=== PATIENT | female | born 1990 | race Caucasian/White ===

== ENCOUNTER → 2017-01-21 | Outpatient (CLI) | payer OTHER ==
--- NOTE | 2017-01-21 16:53 | US ---
EXAMINATION TYPE: US OB anatomy transabd DATE OF EXAM: 01/21/2017 4:29 PM COMPARISON: Previous nongravid study dated 12/31/2015 HISTORY: Large for dates TECHNIQUE: Transabdominal (TA) EXAM MEASUREMENTS: GESTATIONAL AGE / DATING Physician Established: (35 weeks/4 days) EDC: 02/21/2017 Dates by LMP: Unknown Dates by First Scan: No previous here Dates by Current Scan for: (35 weeks/2 days) EDC: 02/23/2017 SURVEY IUP: Single PLACENTA: Anterior PREVIA: No previa YASMEEN: 14.5 cm Normal CERVICAL LENGTH (transabdominal: norm > 3.0cm): 3.6 cm BIOMETRY PRESENTATION: Vertex LIE: Longitudinal BPD: 8.6 cm 34 weeks / 5 days HC: 32.0 cm 36 weeks / 1 days AC: 31.7 cm 35 weeks / 5 days FL: 7.0 cm 35 weeks / 5 days ESTIMATED WEIGHT IN GRAMS: 2682 grams ESTIMATED WEIGHT IN LBS/OZS: 5 lbs. 15 oz. WEIGHT PERCENTAGE BASED ON ESTABLISHED DATE: 46 % HC/AC: 0.99 normal FL/AC: 22% normal HEART RATE: 150 bpm RHYTHM: Normal ANATOMY SEEN (within normal limits): Midline Falx Cavus Septi Pellucidi Four Chamber Heart Outflow tracts: LVOT/RVOT Stomach Situs Nose / Lips Diaphragm Kidneys (bilateral) Bladder Cord Insert Three Vessel Cord Longitudinal Spine Transverse Spine Arms (bilateral) Legs (bilateral) ANATOMY NOT SEEN: Due to advanced age, crowding * Lateral Vent (< 1 cm) cm * Cisterna Magna (< 1.1 cm) cm * Nuchal Fold (< 0.6 cm) cm * Cerebellum (varies with age) cm Choroid Plexus (bilateral) Longitudinal Spine Transverse Spine Arms (bilateral) Legs (bilateral) TECHNOLOGIST IMPRESSION: Viable single IUP measuring 35 weeks 2 days with a heart rate of 150bpm and an estimated delivery date of 02/23/2017 IMPRESSION: STODDARD FETUS PRESENT IN A VERTEX LIE WITH A GESTATIONAL AGE OF 35 WEEKS 2 DAYS +/- 3 WEEKS. ESTIMA MAGO DATE OF CONFINEMENT BASED ON THIS EXAMINATION IS 02/23/2017. PLEASE NOTE THE LIMITATIONS IN THE ANATOMIC SCAN.
== END | disposition home or self-care (01) ==
LOC: RADUSWWP 15:38
PROVIDERS: ATTEND Obstetrics & Gynecology
DX: O36.63X0 Maternal care for excessive fetal growth, third trimester, not applicable or unspecified (principal); Z3A.35 35 weeks gestation of pregnancy
CPT/HCPCS: 76811

== ENCOUNTER 2017-02-18 08:30 | Inpatient (IN) | payer OTHER ==
[2017-02-18] MEDS ORDERED: TERBUTALINE 1 MG/ML VIAL SQ PRN (08:56)
[2017-02-18] MEDS ORDERED: LIDOCAINE 1% (PF) 10 MG/ML (30 ML SDV) SQ PRN (08:56)
[2017-02-18] MEDS ORDERED: CARBOPROST TROMETHAMINE 250 MCG/ML 1 ML AMP IM PRN (08:56)
[2017-02-18] MEDS ORDERED: OXYTOCIN 10 UNIT/ML 1 ML VIAL IM PRN (08:56)
[2017-02-18] MEDS ORDERED: METHYLERGONOVINE 0.2 MG/ML 1 ML AMP IM PRN (08:56)
[2017-02-18] MEDS ORDERED: LACTATED RINGERS 1,000 ML IV SCH ×2 (09:00)
[2017-02-18] MEDS ORDERED: fentaNYL (PF) 50 MCG/ML 5 ML AMP ONE (09:19)
[2017-02-18] MEDS ORDERED: SODIUM CHLORIDE 0.9% 100 ML BAG ONE (09:19)
[2017-02-18] MEDS ORDERED: BUPIVACAINE (PF) 0.25% 30 ML VIAL ONE (09:19)
[2017-02-18 09:39] LABS: Anisocytosis Slight; Basophils % (A) 0 %; CH 26.1; CHCM 32.1; Eosinophils # (A) 0.1 k/uL (0-0.7); Eosinophils % (A) 1 %; HCT 35.3 % (34.0-46.0); HDW 3.99; HGB 11.3 gm/dL (11.4-16.0); Hypochromasia Moderate; Luc # (Auto) 0.28; Luc % (Auto) 3; Lymphocytes # (A) 1.8 k/uL (1.0-4.8); Lymphocytes % (A) 16 %; MCH 26.1 pg (25.0-35.0); MCV 81.6 fL (80.0-100.0); Mean Platelet Volume 7.3; Monocytes # (A) 0.5 k/uL (0-1.0); Monocytes % (A) 4 %; Neutrophils # (A) 8.4 k/uL (1.3-7.7); Neutrophils % (A) 76 %; Poikilocytosis Slight; RBC 4.32 m/uL (3.80-5.40); RDW 16.6 % (11.5-15.5)
[2017-02-18] MEDS ORDERED: diphenhydrAMINE 50 MG CAP PO PRN (10:15)
[2017-02-18] MEDS ORDERED: HYDROCORTISONE 2.5% RECTAL CREAM 30 GM TUBE RECTAL PRN (10:15)
[2017-02-18] MEDS ORDERED: BENZOCAINE/MENTHOL SPRAY 1 GM/SPRAY AEROSOL TOPICAL PRN (10:15)
[2017-02-18] MEDS ORDERED: diphenhydrAMINE 25 MG CAP PO PRN (10:15)
[2017-02-18] MEDS ORDERED: LANOLIN CREAM 5 GM TUBE TOPICAL PRN (10:15)
[2017-02-18] MEDS ORDERED: diphenhydrAMINE 50 MG/ML 1 ML VIAL IVP PRN ×2 (10:15)
[2017-02-18] MEDS ORDERED: SIMETHICONE 80 MG CHEWABLE PO PRN (10:15)
[2017-02-18] MEDS ORDERED: WITCH HAZEL 1 EACH MED..PAD TOPICAL PRN (10:15)
[2017-02-18] MEDS ORDERED: ZOLPIDEM 5 MG TAB PO PRN (10:15)
[2017-02-18] MEDS ORDERED: Acetaminophen-Codeine 300-30mg TAB PO PRN (10:15)
[2017-02-18] MEDS ORDERED: ACETAMINOPHEN TAB 325 MG TAB PO PRN (10:15)
--- NOTE | 2017-02-18 10:17 | P.HPOB ---
History of Present Illness H&P Date: 02/18/17 Chief Complaint: Uterine at term active labor Chey is a 26-year-old who arrives in active labor dilated 6 cm. Her course is significant for [facility] care [facility] at [facility] weeks. Prior to that she denies any significant problems. She since seeing me is also hada different problems or competitions. She is feeling well at this time is gabby every 2-3 minutes. heart tones are reactive in the 130s to 140s. Pertinent labs do include O+ blood type Rh antibody negative rubella was immune. Hepatitis B surface antigen and RPR were both negative. On physical exam vital signs are stable and afebrile. Heart regular, lungs clear, extremities without pain. Once she was complete I did have to do artificial rupture membranes as she didn't want an epidural. Clear fluid is noted. Assessment intrauterine at term. Plan expect spontaneous vaginal delivery. Past Medical History Past Medical History: No Reported History History of Any Multi-Drug Resistant Organisms: None Reported Past Surgical History: No Surgical Hx Reported Past Anesthesia/Blood Transfusion Reactions: No Reported Reaction Past Psychological History: No Psychological Hx Reported Smoking Status: Current every day smoker - Past Family History Mother Family Medical History: No Reported History Medications and Allergies Home Medications Medication Instructions Recorded Confirmed Type Pnv with Ca,No.72/Iron/FA 1 each PO DAILY 12/27/16 02/18/17 History [ Plus Tablet] Allergies Allergy/AdvReac Type Severity Reaction Status Date / Time No Known Allergies Allergy Verified 02/18/17 08:55 Exam Osteopathic Statement: *. No significant issues noted on an osteopathic structural exam other than those noted in the History and Physical/Consult. - Vital Signs Vital signs: Intake and Output 02/17/17 02/18/17 02/18/17 22:59 06:59 14:59 Other: Weight 72.121 kg Patient Weight 02/19/17 06:59 Weight 72.121 kg Results Result Diagrams: 02/18/17 08:45 Abnormal Lab Results - Last 24 Hours (Table) 02/18/17 Range/Units 08:45 WBC 11.0 H (3.8-10.6) k/uL Hgb 11.3 L (11.4-16.0) gm/dL RDW 16.6 H (11.5-15.5) % Neutrophils # 8.4 H (1.3-7.7) k/uL
--- NOTE | 2017-02-18 10:18 | P.PROBDLV ---
Vaginal Delivery Note - . Vaginal Delivery Note: Patient progressed complete and pushed with spontaneous vaginal delivery of a viable yamileth over an intact perineum. Baby was delivered from left occiput anterior position. Following delivery of the head anterior posterior shoulders were delivered gentle downward upper traction followed by the remainder the baby. Baby was then suctioned of both mouth and nares and placed on mother's abdomen where the umbilical cord was allowed to pulsate further 30 seconds prior to clamping and cutting. Once accomplished placenta was then delivered intact Pitocin was added to the IV. scores were 9 and 9 at one and 5 minutes Dalton weight was 7 lbs. 6 oz. Both mother and baby are stable following delivery.
[2017-02-18 10:42] VITALS: BMI 29.0
[2017-02-18] MEDS: IBUPROFEN 600 MG TAB PO PRN ×2 (11:47→18:49)
[2017-02-18] MEDS ORDERED: BUPIVACAINE (PF) 0.25% 25 ML, fentaNYL (PF) 200 MCG in SODIUM CHLORIDE 0.9% 71 ML EPIDURAL ONE (12:26)
[2017-02-18] MEDS ORDERED: NICOTINE 14MG/24HR PATCH TRANSDERM SCH (16:00)
[2017-02-18] MEDS ORDERED: MEASLES-MUMPS-RUBELLA VACC/PF 12,500 UNIT/0.5 ML VIAL SQ ONE (16:59)
[2017-02-18] MEDS: Acetaminophen-Codeine 300-30mg TAB PO PRN (19:59)
[2017-02-18] MEDS: SENNOSIDES-DOCUSATE SODIUM 1 EACH TAB PO SCH (21:48)
[2017-02-18] MEDS: OXYTOCIN 30 UNITS/500 ML NS 30 UNIT in SALINE 1 500ML.BAG IV SCH (21:51)
[2017-02-19] MEDS: Acetaminophen-Codeine 300-30mg TAB PO PRN ×2 (03:51→08:43)
[2017-02-19] MEDS: SENNOSIDES-DOCUSATE SODIUM 1 EACH TAB PO SCH (08:43)
--- NOTE | 2017-02-19 09:12 | P.DS ---
Providers Date of admission: 02/18/17 08:34 Expected date of discharge: 02/19/17 Attending physician: Gabriel Fields Primary care physician: Stated None Hospital Course: Chey is doing very well day 1. She is requesting discharge home today. She is ambulating, voiding, and she is tolerating her diet. She voices no complaint. Vital signs are stable and she is afebrile. Heart regular , lungs clear, extremities without pain. Abdomen is soft uterus is firm lochia is reported light. Assessment day 1. Plan discharged home follow up with me in 6 weeks. Prescription for Motrin has been provided as well as prescription for a breast pump. Patient Condition at Discharge: Good Plan - Discharge Summary New Discharge Prescriptions: Ibuprofen [Motrin] 600 mg PO Q6HR PRN #30 tab PRN Reason: Pain Discharge Medication List Pnv with Ca,No.72/Iron/FA [ Plus Tablet] 1 each PO DAILY 12/27/16 [ History] Ibuprofen [Motrin] 600 mg PO Q6HR PRN #30 tab 02/19/17 [Rx] Follow up Appointment(s)/Referral(s): Gabriel Fields DO [Doctor of Osteopathic Medicine] - 6 Weeks Patient Instructions/Handouts: Vaginal Delivery (DC) Activity/Diet/Wound Care/Special Instructions: Vaginal discharge instructions reviewed and all questions are answered Discharge Disposition: HOME SELF-CARE
[2017-02-19 11:58] VITALS: BP 107/66; PULSE 93; RESP 19; TEMP 98.2
== END 2017-02-19 12:15 | disposition home or self-care (01) | DRG 775 ==
LOC: FBPOP 08:30 → 4FBP 08:34
PROVIDERS: ADMIT Obstetrics & Gynecology; ATTEND Obstetrics & Gynecology
PROC: 10E0XZZ Delivery of Products of Conception, External Approach (ICD-10-PCS; principal; 2017-02-18)
PROC: 3E0134Z Introduction of Serum, Toxoid and Vaccine into Subcutaneous Tissue, Percutaneous Approach (ICD-10-PCS; 2017-02-18)
PROC: 00HU33Z Insertion of Infusion Device into Spinal Canal, Percutaneous Approach (ICD-10-PCS; 2017-02-18)
PROC: 3E0R3CZ (ICD-10-PCS; 2017-02-18)
DX: O99.334 Smoking (tobacco) complicating childbirth (principal); F17.200 Nicotine dependence, unspecified, uncomplicated; Z37.0 Single live birth; Z79.899 Other long term (current) drug therapy; Z23 Encounter for immunization; Z3A.39 39 weeks gestation of pregnancy
CPT/HCPCS: 85025; 88307; 90707

== ENCOUNTER → 2017-09-14 | Outpatient (CLI) | payer OTHER ==
--- NOTE | 2017-09-14 13:05 | US ---
EXAMINATION TYPE: US OB anatomy transabd DATE OF EXAM: 09/14/2017 COMPARISON: None HISTORY: 27-year-old female O36.62X0 Large for Dates 2nd Trimester TECHNIQUE: Multiple transabdominal sonographic images of the pelvis are obtained. FINDINGS: EXAM MEASUREMENTS: GESTATIONAL AGE / DATING Physician Established: (19 weeks/4 days) EDC: 02/04/18 Dates by LMP: unknown Dates by First Scan: not available Dates by Current Scan for: (20 weeks/1 days +/- 1W3D) EDC: 01/31/18 SURVEY IUP: Single PLACENTA: Anterior, hypoechoic area within the placenta measuring 2.0 x 0.9 x 1.7 PREVIA: Low Lying with the caudal placental margin located 1.8 cm from the internal cervical os. YASMEEN: 12.4 cm CERVICAL LENGTH (transabdominal: norm > 3.0cm): 3.7 cm BIOMETRY PRESENTATION: Vertex LIE: Longitudinal BPD: 4.7 cm 20 weeks / 1 days HC: 17.7 cm 20 weeks / 1 days AC: 15.2 cm 20 weeks / 3 days FL: 3.2cm 20 weeks / 0 days ESTIMATED WEIGHT IN GRAMS: 340 grams ESTIMATED WEIGHT IN LBS/OZ: 0 lbs.12 oz. WEIGHT PERCENTAGE BASED ON ESTABLISHED DATE: 82 % HC/AC: 1.2 FL/AC: 21.1 HEART RATE: 150 bpm RHYTHM: Normal ANATOMY SEEN (within normal limits): Lateral Vent (< 1 cm) 7.6 mm Cisterna Magna (< 1.1 cm) 0.5 cm Nuchal Fold (< 0.6 cm) 0.2 cm Cerebellum (varies with age) 1.9 cm Choroid Plexus (bilateral) Midline Falx Cavus Septi Pellucidi Four Chamber Heart Stomach Situs Nose / Lips Diaphragm Kidneys (bilateral) Bladder Cord Insert Three Vessel Cord Arms (bilateral) Legs (bilateral) ANATOMY SUBOPTIMALLY VISUALIZED Outflow tracts: LVOT/RVOT Longitudinal Spine - skin line for the cervical spine not delineated. Transverse Spine SHOE PATTERNMAKER NOTES: Very active fetus, making exam technically difficult. IMPRESSION: 1. Single live intrauterine with established gestational age of 19 weeks 4 days. Current ul trasound biometry is larger but concordant (20 weeks 1 day) placing the child at the 82nd percentile for weight. 2. Low-lying anterior placenta measuring 1.8 cm from the internal cervical os. 3. A 2.0 cm hypoechoic area in the placenta could represent a prominent venous raza or chorioangioma. 4. A few structures on the survey were suboptimally visualized (outflow tracts and spine). The remaining structures appear normal. Patient can be brought back for a rescan in 1 to 2 weeks if [place] [facility].
== END | disposition home or self-care (01) ==
LOC: RADUSWWP 10:23
PROVIDERS: ATTEND Obstetrics & Gynecology
DX: O44.42 Low lying placenta NOS or without hemorrhage, second trimester (principal); Z3A.19 19 weeks gestation of pregnancy
CPT/HCPCS: 76811

== ENCOUNTER 2018-01-06 14:42 | Outpatient (CLI) | payer OTHER ==
[2018-01-06 16:25] VITALS: BP 98/60; PULSE 96; RESP 16; TEMP 97.6
--- NOTE | 2018-01-16 10:37 | P.MSEPDOC ---
Presenting Problems - Arrival Data Date of Arrival on Unit: 01/06/18 Time of Arrival on Unit: 14:42 Mode of Transport: Ambulatory - Complaint OB-Reason for Admission/Chief Complaint: Possible Onset of Labor Medical History - Information : 6 Para: 4 Term: 4 : 0 Abortions: Spontaneous or Elective: 0 Number of Living Children: 4 - Gestational Age Gestational Age by ASHLEY (wks/days): 35 Weeks and 6 Days - History Complications: Smoker Review of Systems - Review of Systems Constitutional: No problems Breast: No problems ENT: No problems Cardiovascular: No problems Respiratory: No problems Gastrointestinal: No problems Genitourinary: No problems Musculoskeletal: No problems Neurological: No problems Skin: No problems Vital Signs - Temperature Temperature: 97.6 F - Pulse Right Brachial Pulse Rate: 96 Pulse Assessment Method: Automatic Cuff - Respirations Respiratory Rate: 16 Oxygen Delivery Method: Room Air - Blood Pressure Right Arm Blood Pressure: 98/60 Blood Pressure Mean: 72 Blood Pressure Source: Automatic Cuff Medical Screen Scoring (Pre) - Cervical Exam Dilation: 1-3 cm = 1 Membranes: Intact - Uterine Contractions Frequency: < 36 weeks = 6 Duration: > 40 seconds = 2 Intensity: N/A - Maternal Vital Signs Maternal Temperature: N/A Maternal Blood Pressure: N/A Signs of Preeclampsia: N/A Maternal Respirations: N/A - Pain Assessment Pain Location and Character: Abdomen Pain Scale Used: Numeric (1 - 10) Pain Intensity: 4 Pain Management Goal: 2 Pain Description: *Acute, Cramping Pain Radiation Location: na Pain Frequency: Intermittent Pain Duration: 2 Pain Duration Units: Minutes Pain Behavior: Vocalization Pain Aggravating Factors: None - Maternal Trauma Maternal Trauma: N/A - Assessment Baseline FHR: 125 Heart Rate - NICHD Category: Category I (Normal) = 0 NST: Reactive Position: N/A Station: N/A - Total Score Total Score (Pre): 9 - Level of Risk Level of Risk: Medium (6-9) Physician Notification (Pre) - Physician Notified Physician Notified Date: 01/06/18 Physician Notified Time: 16:00 Physician/Practitioner Notifed:: Dr. Fields Spoke With: Dr. Fields New Order Received: Yes - Notification Comment Comment: orders to have the pt walk the halls and recheck cervix in one hour Medical Screen Scoring (Post) - Cervical Exam Dilation: 1-3 cm = 1 Membranes: Intact - Uterine Contractions Frequency: < 36 weeks = 6 Duration: > 40 seconds = 2 Intensity: N/A - Maternal Vital Signs Maternal Temperature: N/A Maternal Blood Pressure: N/A Signs of Preeclampsia: N/A Maternal Respirations: N/A - Assessment Heart Rate: 125 Heart Rate - NICHD Category: Category I (Normal) = 0 - Total Score Total Score (Post): 9 Physician Notification (Post) - Physician Notified Physician Notified Date: 01/06/18 Physician Notified Time: 17:00 Physician/Practitioner Notified:: Dr. Fields Spoke With: Dr. Fields New Order Received: Yes - Notification Comment Comment: D/C home, not cervical change after two hours Disposition - Disposition OB Disposition: Discharge to home Discharge Date: 01/06/18 Discharge Time: 17:15 I agree with the RN Medical Screening Exam: Yes Risk & Benefit of care provided described in d/c instruction: Yes Diagnosis: FALSE LABOR BEFORE 37 COMPLETED WEEKS OF GEST, THIRD TRI
== END 2018-01-06 17:15 | disposition home or self-care (01) ==
LOC: FBPOP 14:42
PROVIDERS: ATTEND Obstetrics & Gynecology
DX: O47.03 False labor before 37 completed weeks of gestation, third trimester (principal); O99.333 Smoking (tobacco) complicating pregnancy, third trimester; Z3A.35 35 weeks gestation of pregnancy
CPT/HCPCS: 59025; 84112; G0463; 99213

== ENCOUNTER 2018-01-18 22:20 | Outpatient (CLI) | payer OTHER ==
[2018-01-18 23:47] VITALS: BP 114/71; PULSE 109; RESP 16; TEMP 98.6
--- NOTE | 2018-01-22 08:02 | P.MSEPDOC ---
Presenting Problems - Arrival Data Date of Arrival on Unit: 01/18/18 Time of Arrival on Unit: 22:20 Mode of Transport: Ambulatory - Complaint OB-Reason for Admission/Chief Complaint: Possible Onset of Labor Medical History - Information : 6 Para: 4 Term: 4 : 0 Abortions: Spontaneous or Elective: 0 Number of Living Children: 4 - Gestational Age Gestational Age by ASHLEY (wks/days): 37 Weeks and 5 Days - History Complications: GBS+, Smoker Review of Systems - Review of Systems Constitutional: No problems Breast: No problems ENT: No problems Cardiovascular: No problems Respiratory: No problems Gastrointestinal: No problems Genitourinary: No problems Musculoskeletal: No problems Neurological: No problems Skin: No problems Vital Signs - Temperature Temperature: 98.6 F Temperature Source: Temporal Artery Scan - Pulse Right Pulse Rate: 109 Pulse Assessment Method: Pulse Oximetry - Respirations Respiratory Rate: 16 - Blood Pressure Right Arm Blood Pressure: 114/71 Blood Pressure Mean: 85 Blood Pressure Source: Automatic Cuff Medical Screen Scoring (Pre) - Cervical Exam Dilation: 1-3 cm = 1 Membranes: Intact - Uterine Contractions Frequency: > or = 36 weeks =2 Duration: > 40 seconds = 2 Intensity: N/A - Maternal Vital Signs Maternal Temperature: N/A Maternal Blood Pressure: N/A Signs of Preeclampsia: N/A Maternal Respirations: N/A - Assessment Baseline FHR: 135 Heart Rate - NICHD Category: Category I (Normal) = 0 NST: Reactive Position: N/A - Total Score Total Score (Pre): 5 - Level of Risk Level of Risk: Low (0-5) Physician Notification (Pre) - Physician Notified Physician Notified Date: 01/18/18 Physician Notified Time: 23:45 Physician/Practitioner Notifed:: Dr Jang - Notification Comment Comment: reported on pts c/o cntrx, hx of quick deliveries, reactive fhts, cntrx pattern irregular, no cervical change after an hour, pt has scheduled appt tomorrow. orders to d/c home Disposition - Disposition OB Disposition: Discharge to home Discharge Date: 01/18/18 Discharge Time: 23:47 I agree with the RN Medical Screening Exam: Yes Risk & Benefit of care provided described in d/c instruction: Yes Diagnosis: FALSE LABOR AT OR AFTER 37 COMPLETED WEEKS OF GESTATION
== END 2018-01-18 23:48 | disposition home or self-care (01) ==
LOC: FBPOP 22:20
PROVIDERS: ATTEND Obstetrics & Gynecology
DX: O47.1 False labor at or after 37 completed weeks of gestation (principal); Z3A.37 37 weeks gestation of pregnancy
CPT/HCPCS: 59025; G0463; 99213

== ENCOUNTER 2018-01-25 19:20 | Outpatient (CLI) | payer OTHER ==
[2018-01-25 19:49] VITALS: BP 115/81; PULSE 100; RESP 16; TEMP 98.1
--- NOTE | 2018-01-27 17:45 | P.MSEPDOC ---
Presenting Problems - Arrival Data Date of Arrival on Unit: 01/25/18 Time of Arrival on Unit: 19:20 Mode of Transport: Ambulatory - Complaint OB-Reason for Admission/Chief Complaint: Possible Onset of Labor Comment: pt has been gabby irregularly all day Medical History - Information : 7 Para: 4 Term: 4 : 0 Abortions: Spontaneous or Elective: 2 Number of Living Children: 4 - Gestational Age Gestational Age by ASHLEY (wks/days): 38 Weeks and 4 Days - History Complications: No Care Review of Systems - Review of Systems Constitutional: No problems Breast: No problems ENT: No problems Cardiovascular: No problems Respiratory: No problems Gastrointestinal: No problems Genitourinary: No problems Musculoskeletal: No problems Neurological: No problems Skin: No problems Vital Signs - Temperature Temperature: 98.1 F Temperature Source: Oral - Pulse Right Sitting Brachial Pulse Rate: 100 Pulse Assessment Method: Automatic Cuff - Respirations Respiratory Rate: 16 Oxygen Delivery Method: Room Air O2 Sat by Pulse Oximetry: 97 - Blood Pressure Right Arm Sitting Blood Pressure: 115/81 Blood Pressure Mean: 92 Blood Pressure Source: Automatic Cuff Medical Screen Scoring (Pre) - Cervical Exam Dilation: 1-3 cm = 1 Membranes: Intact - Uterine Contractions Frequency: > 5 minutes apart = 1 Duration: > 40 seconds = 2 Intensity: N/A - Maternal Vital Signs Maternal Temperature: N/A Maternal Blood Pressure: N/A Signs of Preeclampsia: N/A Maternal Respirations: N/A - Pain Assessment Pain Location and Character: Abdomen Pain Scale Used: Numeric (1 - 10) Pain Intensity: 7 Pain Management Goal: 4 Pain Description: Cramping Pain Radiation Location: back Pain Frequency: Intermittent Pain Duration: 1 Pain Duration Units: contractions Pain Behavior: Facial Grimacing Pain Aggravating Factors: Breathing, Changing Position Non-Pharmacological Interventions: Relaxation Technique - Maternal Trauma Maternal Trauma: N/A - Assessment Baseline FHR: 135 Heart Rate - NICHD Category: Category I (Normal) = 0 NST: Reactive Position: N/A Station: N/A - Total Score Total Score (Pre): 4 - Level of Risk Level of Risk: Low (0-5) Physician Notification (Pre) - Physician Notified Physician Notified Date: 01/25/18 Physician Notified Time: 20:20 Physician/Practitioner Notifed:: Dr Jerardo Lazar Order Received: No Medical Screen Scoring (Post) - Cervical Exam Dilation: 1-3 cm = 1 Membranes: Intact - Uterine Contractions Frequency: > 5 minutes apart = 1 Duration: > 40 seconds = 2 Intensity: N/A - Maternal Vital Signs Maternal Temperature: N/A Maternal Blood Pressure: N/A Signs of Preeclampsia: N/A Maternal Respirations: N/A - Maternal Trauma Maternal Trauma: N/A - Total Score Total Score (Post): 4 - Post Treatment Level of Risk Post Treatment Level of Risk: Low (0-5) Physician Notification (Post) - Physician Notified Physician Notified Date: 01/25/18 Physician Notified Time: 20:40 Physician/Practitioner Notified:: Dr Jerardo Lazar Order Received: Yes - Notification Comment Comment: pt is to keep apt with Dr Fields tomorrow am at 9am Disposition - Disposition OB Disposition: Discharge to home, Written follow up instructions reviewed Discharge Date: 01/25/18 Discharge Time: 20:45 I agree with the RN Medical Screening Exam: Yes Risk & Benefit of care provided described in d/c instruction: Yes Diagnosis: FALSE LABOR AT OR AFTER 37 COMPLETED WEEKS OF GESTATION
== END 2018-01-25 20:45 | disposition home or self-care (01) ==
LOC: FBPOP 19:20
PROVIDERS: ATTEND Obstetrics & Gynecology
DX: O47.1 False labor at or after 37 completed weeks of gestation (principal); Z3A.38 38 weeks gestation of pregnancy
CPT/HCPCS: 59025; G0463; 99213

== ENCOUNTER 2018-01-26 09:36 | Inpatient (IN) | payer OTHER ==
[2018-01-26] MEDS ORDERED: AMPICILLIN 2,000 MG in SODIUM CHLORIDE 0.9% 100 ML IVPB STA (09:44)
[2018-01-26] MEDS ORDERED: LIDOCAINE 1% (PF) 10 MG/ML (30 ML SDV) SQ PRN (09:44)
[2018-01-26] MEDS ORDERED: CARBOPROST TROMETHAMINE 250 MCG/ML 1 ML AMP IM PRN (09:44)
[2018-01-26] MEDS ORDERED: METHYLERGONOVINE 0.2 MG/ML 1 ML AMP IM PRN (09:44)
[2018-01-26] MEDS ORDERED: TERBUTALINE 1 MG/ML VIAL SQ PRN (09:44)
[2018-01-26] MEDS ORDERED: OXYTOCIN 10 UNIT/ML 1 ML VIAL IM PRN (09:44)
[2018-01-26] MEDS ORDERED: OXYTOCIN 20 UNITS/1000 ML NS 1,000 ML IV SCH (09:45)
[2018-01-26 09:51] VITALS: BMI 30.3
[2018-01-26] MEDS: LACTATED RINGERS 1,000 ML IV SCH ×3 (09:55→21:40)
[2018-01-26] MEDS ORDERED: BUPIVACAINE (PF) 0.25% 30 ML VIAL ONE (10:11)
[2018-01-26] MEDS ORDERED: SODIUM CHLORIDE 0.9% 100 ML BAG ONE (10:11)
[2018-01-26] MEDS ORDERED: fentaNYL (PF) 50 MCG/ML 5 ML AMP ONE (10:11)
[2018-01-26] MEDS ORDERED: ePHEDrine SULFATE/0.9% NACL/PF 50 MG/5 ML SYRINGE IV ONE (10:11)
[2018-01-26 10:22] LABS: Anisocytosis Slight; Basophils % (A) 0 %; Eosinophils # (A) 0.1 k/uL (0-0.7); Eosinophils % (A) 1 %; HGB 10.8 gm/dL (11.4-16.0); Hypochromasia Moderate; Lymphocytes # (A) 1.6 k/uL (1.0-4.8); Lymphocytes % (A) 15 %; MCH 25.2 pg (25.0-35.0); MCHC 31.8 g/dL (31.0-37.0); MCV 79.2 fL (80.0-100.0); Mean Platelet Volume 7.7; Microcytosis Slight; Monocytes # (A) 0.6 k/uL (0-1.0); Monocytes % (A) 5 %; Neutrophils # (A) 8.6 k/uL (1.3-7.7); Neutrophils % (A) 78 %; Platelet Count 274 k/uL (150-450); Poikilocytosis Moderate; RBC 4.29 m/uL (3.80-5.40); RDW 17.1 % (11.5-15.5); WBC 11.1 k/uL (3.8-10.6)
[2018-01-26] MEDS ORDERED: BUPIVACAINE (PF) 0.25% 25 ML, fentaNYL (PF) 200 MCG in SODIUM CHLORIDE 0.9% 71 ML EPIDURAL ONE (10:29)
[2018-01-26] MEDS: AMPICILLIN 1,000 MG in SODIUM CHLORIDE 0.9% 50 ML IVPB SCH ×2 (13:50→21:42)
[2018-01-26] MEDS ORDERED: Acetaminophen-Codeine 300-30mg TAB PO PRN ×2 (16:22)
[2018-01-26] MEDS ORDERED: diphenhydrAMINE 50 MG CAP PO PRN (16:22)
[2018-01-26] MEDS ORDERED: ZOLPIDEM 5 MG TAB PO PRN (16:22)
[2018-01-26] MEDS ORDERED: diphenhydrAMINE 25 MG CAP PO PRN (16:22)
[2018-01-26] MEDS ORDERED: ACETAMINOPHEN TAB 325 MG TAB PO PRN (16:22)
[2018-01-26] MEDS ORDERED: HYDROCORTISONE 2.5% RECTAL CREAM 30 GM TUBE RECTAL PRN (16:22)
[2018-01-26] MEDS ORDERED: SIMETHICONE 80 MG CHEWABLE PO PRN (16:22)
[2018-01-26] MEDS ORDERED: WITCH HAZEL 1 EACH MED..PAD TOPICAL PRN (16:22)
[2018-01-26] MEDS ORDERED: LANOLIN CREAM 5 GM TUBE TOPICAL PRN (16:22)
[2018-01-26] MEDS ORDERED: diphenhydrAMINE 50 MG/ML 1 ML VIAL IVP PRN ×2 (16:22)
[2018-01-26] MEDS ORDERED: BENZOCAINE/MENTHOL SPRAY 1 GM/SPRAY AEROSOL TOPICAL PRN (16:22)
[2018-01-26] MEDS: IBUPROFEN 600 MG TAB PO PRN (17:20)
--- NOTE | 2018-01-26 18:21 | P.HPOB ---
History of Present Illness H&P Date: 01/26/18 Chief Complaint: IUP term: active labor Chey is a 27-year-old at 38 weeks gestation who arrives in active labor. She has a history of very rapid labors and on exam in the office today she was noted be 6 cm she was initially sent to labor and delivery for admission. Due to groupie strep positive status, at of ionic's were initiated. Artificial rupture membranes was not performed until the second dose antibodies was about to be given. Her course otherwise has been significant for pica which began at approximately 28 weeks. At that time she was supposed to initiate iron sulfate therapy and will be pica did improve it did not resolve. Pertinent labs do include O+ blood type, Rh antibody was negative, rubella immune, hepatitis B surface antigen and RPR were both negative. On physical exam vital signs are stable and afebrile. Heart regular , lungs clear, extremities without pain. Osteopathic exams unremarkable. heart tones 140s and reactive. Assessment intrauterine at term with active labor. Plan expect spontaneous vaginal delivery and she anticipates use of epidural for analgesia. Past Medical History Past Medical History: No Reported History History of Any Multi-Drug Resistant Organisms: None Reported Past Surgical History: No Surgical Hx Reported Additional Past Surgical History / Comment(s): 2007 Past Anesthesia/Blood Transfusion Reactions: No Reported Reaction Past Psychological History: No Psychological Hx Reported Smoking Status: Current every day smoker Past Alcohol Use History: None Reported Past Drug Use History: None Reported - Past Family History Mother Family Medical History: No Reported History Medications and Allergies Home Medications Medication Instructions Recorded Confirmed Type No Known Home Medications [No 01/18/18 01/25/18 History Known Home Medications] Allergies Allergy/AdvReac Type Severity Reaction Status Date / Time No Known Allergies Allergy Verified 01/18/18 22:25 Exam Osteopathic Statement: *. No significant issues noted on an osteopathic structural exam other than those noted in the History and Physical/Consult. - Vital Signs Vital signs: Vital Signs Temp Pulse Resp BP Pulse Ox 01/26/18 17:00 97 F L 88 16 120/79 01/26/18 16:30 91 16 115/75 01/26/18 16:00 88 16 116/66 01/26/18 15:45 101 H 16 117/71 01/26/18 15:30 90 16 116/57 01/26/18 15:15 100 16 147/82 01/26/18 15:00 115 H 16 113/76 01/26/18 09:43 98.2 F 113 H 18 128/94 99 Intake and Output 01/26/18 01/26/18 01/26/18 06:59 14:59 22:59 Other: # Voids 1 Weight 75.296 kg Patient Weight 01/27/18 06:59 Weight 75.296 kg Results Result Diagrams: 01/26/18 09:52 Abnormal Lab Results - Last 24 Hours (Table) 01/26/18 Range/Units 09:52 WBC 11.1 H (3.8-10.6) k/uL Hgb 10.8 L (11.4-16.0) gm/dL MCV 79.2 L (80.0-100.0) fL RDW 17.1 H (11.5-15.5) % Neutrophils # 8.6 H (1.3-7.7) k/uL
--- NOTE | 2018-01-26 18:22 | P.PROBDLV ---
Vaginal Delivery Note - . Vaginal Delivery Note: Chey progressed to complete and pushing with spontaneous vaginal delivery of a viable male over an intact perineum. Following delivery of the head anterior and posterior shoulders were delivered with gentle downward and upward traction followed by the remainder the baby. Mouth and nares were then bulb suctioned and baby was placed on mother's abdomen where the umbilical cord was allowed to pulsate for 30 seconds prior to clamping and cutting. Once this was accomplished nursery personnel was present to assume care. Placenta was then delivered intact and Pitocin was added to the IV. scores were 9 and 9 at one and 5 minutes respectively with a weight of 7 lbs. 13 oz. Both mother and baby baby are stable following delivery.
[2018-01-26] MEDS: SENNOSIDES-DOCUSATE SODIUM 1 EACH TAB PO SCH (20:20)
[2018-01-27] MEDS: IBUPROFEN 600 MG TAB PO PRN ×2 (06:21→12:45)
[2018-01-27 07:55] LABS: Anisocytosis Slight; Basophils % (A) 0 %; Eosinophils # (A) 0.1 k/uL (0-0.7); Eosinophils % (A) 1 %; HCT 31.2 % (34.0-46.0); HGB 9.7 gm/dL (11.4-16.0); Hypochromasia Moderate; Lymphocytes # (A) 1.8 k/uL (1.0-4.8); Lymphocytes % (A) 20 %; MCH 25.2 pg (25.0-35.0); MCHC 31.1 g/dL (31.0-37.0); Mean Platelet Volume 8.2; Monocytes # (A) 0.6 k/uL (0-1.0); Monocytes % (A) 6 %; Neutrophils # (A) 6.6 k/uL (1.3-7.7); Neutrophils % (A) 72 %; Platelet Count 246 k/uL (150-450); Poikilocytosis Slight; RBC 3.85 m/uL (3.80-5.40); RDW 16.9 % (11.5-15.5); WBC 9.2 k/uL (3.8-10.6)
[2018-01-27] MEDS: SENNOSIDES-DOCUSATE SODIUM 1 EACH TAB PO SCH (08:11)
[2018-01-27 08:59] VITALS: BP 119/78; PULSE 78; RESP 16; TEMP 97.6
--- NOTE | 2018-01-27 12:28 | P.DS ---
Providers Date of admission: 01/26/18 09:36 Expected date of discharge: 01/27/18 Attending physician: Gabriel Fields Primary care physician: Stated None Hospital Course: Chey is doing very well day 1. She is ambulating, voiding, and she is tolerating her diet. She voices no complaint. Vital signs are stable and afebrile. Heart regular, lungs clear, extremities without pain. Abdomen soft positive bowel sounds are noted. Uterus is firm and lochia is reported be light. Assessment day 1. Plan discharged home follow me in 6 weeks. Discharge instructions were thoroughly reviewed and a prescription for Motrin has been provided. All other questions are answered for her prior to her discharge. Patient Condition at Discharge: Good Plan - Discharge Summary Discharge Rx Participant: Yes New Discharge Prescriptions: New Ibuprofen [Motrin] 600 mg PO Q6HR PRN #30 tab PRN Reason: Pain Discharge Medication List Ibuprofen [Motrin] 600 mg PO Q6HR PRN #30 tab 01/27/18 [Rx] Follow up Appointment(s)/Referral(s): Gabriel Fields DO [Doctor of Osteopathic Medicine] - 6 Weeks Activity/Diet/Wound Care/Special Instructions: No heavy lifting, limit stairs and driving, and pelvic rest. If any high temperatures, heavy bleeding, or severe pain call my office Discharge Disposition: HOME SELF-CARE
== END 2018-01-27 16:40 | disposition home or self-care (01) | DRG 775 ==
LOC: 4FBP 09:36
PROVIDERS: ADMIT Obstetrics & Gynecology; ATTEND Obstetrics & Gynecology
PROC: 10E0XZZ Delivery of Products of Conception, External Approach (ICD-10-PCS; principal; 2018-01-26)
PROC: 3E0R3NZ Introduction of Analgesics, Hypnotics, Sedatives into Spinal Canal, Percutaneous Approach (ICD-10-PCS; 2018-01-26)
PROC: 00HU33Z Insertion of Infusion Device into Spinal Canal, Percutaneous Approach (ICD-10-PCS; 2018-01-26)
DX: O99.824 Streptococcus B carrier state complicating childbirth (principal); F17.210 Nicotine dependence, cigarettes, uncomplicated; O99.334 Smoking (tobacco) complicating childbirth; Z37.0 Single live birth; Z3A.38 38 weeks gestation of pregnancy; Z87.19 Personal history of other diseases of the digestive system
CPT/HCPCS: 85025; 88307

== ENCOUNTER → 2018-04-09 | Outpatient (CLI) | payer OTHER ==
[2018-04-09 10:43] LABS: Anisocytosis Slight; Basophils % (A) 0 %; Eosinophils # (A) 0.2 k/uL (0-0.7); Eosinophils % (A) 3 %; HCT 39.6 % (34.0-46.0); HGB 12.7 gm/dL (11.4-16.0); Lymphocytes % (A) 30 %; MCV 84.3 fL (80.0-100.0); Mean Platelet Volume 8.8; Microcytosis Slight; Monocytes # (A) 0.4 k/uL (0-1.0); Monocytes % (A) 6 %; Neutrophils # (A) 3.8 k/uL (1.3-7.7); Neutrophils % (A) 60 %; Platelet Count 261 k/uL (150-450); RDW 18.3 % (11.5-15.5); WBC 6.4 k/uL (3.8-10.6)
== END | disposition home or self-care (01) ==
LOC: LABPAT 10:21
PROVIDERS: ATTEND Obstetrics & Gynecology
DX: Z01.812 Encounter for preprocedural laboratory examination (principal)
CPT/HCPCS: 36415; 85025

== ENCOUNTER 2018-04-12 11:25 | Day surgery (SDC) | payer OTHER ==
[2018-04-09 09:12] VITALS: BMI 27.2
--- NOTE | 2018-04-09 16:51 | P.HPOB ---
History of Present Illness H&P Date: 04/09/18 Chief Complaint: Family planning Chey is a 27-year-old female who is completed her family planning desires permanent sterilization. She is a 7 para 6. Risks/benefits/ alternatives to a laparoscopic tubal ligation were discussed with the patient in detail and all questions were answered for her prior to proceeding to the operative room. Past Medical History Past Medical History: No Reported History History of Any Multi-Drug Resistant Organisms: None Reported Past Surgical History: Hernia Repair, Tonsillectomy Additional Past Surgical History / Comment(s): UMBILICAL HERNIA REPAIR, D&C Past Anesthesia/Blood Transfusion Reactions: No Reported Reaction Smoking Status: Current every day smoker - Past Family History Mother Family Medical History: No Reported History Medications and Allergies Home Medications Medication Instructions Recorded Confirmed Type Ibuprofen [Motrin] 600 mg PO Q6HR PRN #30 tab 01/27/18 04/09/18 Rx Allergies Allergy/AdvReac Type Severity Reaction Status Date / Time No Known Allergies Allergy Verified 04/09/18 08:23 Exam Osteopathic Statement: *. No significant issues noted on an osteopathic structural exam other than those noted in the History and Physical/Consult. - Vital Signs Vital signs: Intake and Output 04/09/18 04/09/18 04/09/18 06:59 14:59 22:59 Other: Weight 67.585 kg - OBG Physical Exam Breast: both: normal (no masses) Abdomen: bowel sounds normal, no diffuse tenderness, no bruit present, no guarding noted, no hepatomegaly, no splenomegaly, no mass Vulva: both: normal Vagina: normal moisture, no discharge Cervix: no lesion, no discharge Uterus: normal size, normal contour Adnexa: both: normal Anus/Rectum: normal perianal skin, no rectal mass, no hemorrhoids, heme negative
[~2018-04-12 11:25] MED LIST: DEXAMETHASONE SOD PHOSPHATE 10 MG/ML 1 ML VIAL IV ONE; LACTATED RINGERS 1,000 ML IV SCH; MIDAZOLAM 2 MG/2 ML VIAL IV PRN; ONDANSETRON 4 MG/2 ML VIAL IVP ONE; Pre Op ABX Message 1 EACH MISC MISCELLANE ONE; SCOPOLAMINE 1.5MG/72HR PATCH TRANSDERM ONE; fentaNYL (PF) 50 MCG/ML 2 ML AMP IV PRN
[2018-04-12] MEDS ORDERED: SUCCINYLCHOLINE CHLORIDE 100 MG/5 ML SYR IV ONE (12:28)
[2018-04-12] MEDS ORDERED: LIDOCAINE 1% INJ 10MG/ML (20 ML MDV) ONE (12:28)
[2018-04-12] MEDS ORDERED: ROCURONIUM BROMIDE 10 MG/ML 10 ML VIAL IV ONE (12:28)
[2018-04-12] MEDS ORDERED: GLYCOPYRROLATE 0.2 MG/ML 2 ML VIAL ONE (12:28)
[2018-04-12] MEDS ORDERED: MIDAZOLAM 2 MG/2 ML VIAL ONE (12:28)
[2018-04-12] MEDS ORDERED: NEOSTIGMINE 1 MG/ML 10 ML VIAL ONE (12:28)
[2018-04-12] MEDS ORDERED: PROPOFOL 10 MG/ML 20 ML VIAL IV ONE (12:28)
[2018-04-12] MEDS ORDERED: fentaNYL (PF) 50 MCG/ML 2 ML AMP ONE (12:28)
[2018-04-12] MEDS ORDERED: LIDOCAINE 1% 20 ML VIAL (10MG/ML) FOR IV START INTRADERMA ONE (12:30)
[2018-04-12] MEDS ORDERED: BUPIVACAINE (PF) 0.25% 30 ML VIAL SQ ONE (12:51)
--- NOTE | 2018-04-12 13:05 | P.OP ---
Date of Procedure: 04/12/18 Preoperative Diagnosis: Family planning Postoperative Diagnosis: Same Procedure(s) Performed: Laparoscopic tubal occlusion with Filshie clips Anesthesia: MAHNAZ Surgeon: Gabriel Fields Estimated Blood Loss (ml): 5 IV fluids (ml): 400 Urine output (ml): 30 Pathology: none sent Condition: stable Disposition: same day Operative Findings: Normal female anatomy Description of Procedure: Patient was taken to the operating suite where a general anesthetic was found be adequate. She was prepped and draped in the normal sterile fashion and placed in dorsal lithotomy position. Initially a speculum was inserted into the vagina and the anterior lip cervix identified and grasped with Allis clamp. Uterus was then sounded to 11 cm and a manipulator was inserted without difficulty. Red rubber catheter was then used to drain the bladder of urine and this underwent an Allis clamp were removed. Gloves were then changed and attention was turned to the abdominal portion of procedure where 3 mL of quarter percent Marcaine was injected periumbilically. Through this injected anesthetic a 5 mm skin incision was made and through this incision under direct visualization with an optical trocar and sleeve the camera was inserted. Once peritoneal placement was assured gas was allowed to fully insufflate the abdomen and patient was then placed in steep Trendelenburg position. A second 8 mm skin incision was then made 3 cm above the pubic symphysis in the midline and an 8 mm trocar and sleeve were inserted. Observations the pelvis were noted uterus was then elevated first the right fallopian tube the left fallopian tube had a Filshie clip applied 2-3 cm from uterine cornu. No bleeding is noted from the mesosalpinx therefore instruments are removed and gas was allowed to expel from the abdomen. 5 deep breaths were provided during this process. Once completed ports were removed and 4-0 Vicryl was used to close incision subcuticular. The remaining 7 mL of quarter percent Marcaine was then injected around these incisions. Incidents removed from the vagina. Bunge, lap, needle counts were all correct 2. Patient was then taken to the recovery room in stable and satisfactory condition. Plan - Discharge Summary New Discharge Prescriptions: New Ibuprofen [Motrin] 600 mg PO Q6HR PRN #30 tab PRN Reason: Pain No Action Ibuprofen [Motrin] 600 mg PO Q6HR PRN #30 tab PRN Reason: Pain Discharge Medication List Ibuprofen [Motrin] 600 mg PO Q6HR PRN #30 tab 01/27/18 [Rx] Ibuprofen [Motrin] 600 mg PO Q6HR PRN #30 tab 04/12/18 [Rx] Follow up Appointment(s)/Referral(s): Gabriel Fields DO [Doctor of Osteopathic Medicine] - 2 Weeks Activity/Diet/Wound Care/Special Instructions: No heavy lifting, limit stairs and driving today, pelvic rest. If any high temperatures, heavy bleeding, or severe pain call my office
[2018-04-12] MEDS ORDERED: MORPHINE SULFATE 4MG/4ML SYRG IVP ONE (13:15)
[2018-04-12 13:26] VITALS: TEMP 97
[2018-04-12] MEDS ORDERED: KETOROLAC 30 MG/ML 1 ML VIAL IVP ONE (13:27)
[2018-04-12 14:03] VITALS: RESP 18
[2018-04-12] MEDS ORDERED: IBUPROFEN 200 MG TAB PO ONE (14:56)
[2018-04-12 15:25] VITALS: BP 123/83; PULSE 61
== END 2018-04-12 15:38 | disposition home or self-care (01) ==
LOC: OR 11:25
PROVIDERS: ATTEND Obstetrics & Gynecology
DX: Z30.2 Encounter for sterilization (principal); F17.200 Nicotine dependence, unspecified, uncomplicated
CPT/HCPCS: 81025; 58671; J2250; J1100; J2710; J2405; J2001; J3010; J1885; J0330; J2704; J2270

== ENCOUNTER 2020-05-03 09:05 | Inpatient (IN) | payer MEDICAID, OTHER ==
[2020-05-03] MEDS ORDERED: SODIUM CHLORIDE 0.9% 500 ML 500 ML IV STA (09:33)
[2020-05-03] MEDS ORDERED: ACTIVATED CHARCOAL 50 GM/240 ML BOTTLE PO STA (09:34)
[2020-05-03 09:41] LABS: Basophils # (A) 0.1 k/uL (0-0.2); Basophils % (A) 1 %; Eosinophils # (A) 0.1 k/uL (0-0.7); Eosinophils % (A) 2 %; HCT 40.1 % (34.0-46.0); HGB 12.9 gm/dL (11.4-16.0); Lymphocytes # (A) 2.7 k/uL (1.0-4.8); Lymphocytes % (A) 33 %; MCHC 32.1 g/dL (31.0-37.0); MCV 90.3 fL (80.0-100.0); Mean Platelet Volume 7.2; Monocytes # (A) 0.4 k/uL (0-1.0); Monocytes % (A) 4 %; Neutrophils # (A) 4.7 k/uL (1.3-7.7); Neutrophils % (A) 58 %; Platelet Count 253 k/uL (150-450); RBC 4.44 m/uL (3.80-5.40); RDW 14.3 % (11.5-15.5); WBC 8.1 k/uL (3.8-10.6)
--- NOTE | 2020-05-03 09:41 | ED ---
General Adult HPI - General Chief complaint: Overdose Stated complaint: Overdose Source: patient, family, RN notes reviewed, old records reviewed Mode of arrival: wheelchair Limitations: no limitations - History of Present Illness Initial comments: This is a 29-year-old female who states at approximately 7:30 this morning she was upset that she couldn't see her kids anymore so she took 20 Klonopin and one half of the Suboxone. Patient states she purchased them on the street. Patient is very tired. Patient denies any other drug use. Patient states she has attempted suicide in the past. Patient states she was trying to harm her self. Patient denies any recent fever chills or cough per patient denies any chest pain difficulty breathing shortness breath. Patient denies abdominal pain patient denies nausea vomiting diarrhea. - Related Data Home Medications Medication Instructions Recorded Confirmed No Known Home Medications 05/03/20 05/03/20 Allergies Allergy/AdvReac Type Severity Reaction Status Date / Time No Known Allergies Allergy Verified 05/03/20 11:11 Review of Systems ROS Statement: Those systems with pertinent positive or pertinent negative responses have been documented in the HPI. ROS Other: All systems not noted in ROS Statement are negative. Past Medical History Past Medical History: No Reported History History of Any Multi-Drug Resistant Organisms: None Reported Past Surgical History: Hernia Repair, Tonsillectomy Additional Past Surgical History / Comment(s): UMBILICAL HERNIA REPAIR, D&C Past Anesthesia/Blood Transfusion Reactions: No Reported Reaction Past Psychological History: No Psychological Hx Reported Smoking Status: Current every day smoker Past Alcohol Use History: None Reported Past Drug Use History: Marijuana, Methamphetamine - Past Family History Mother Family Medical History: No Reported History General Exam - General Exam Comments Initial Comments: GENERAL: Patient is well-developed and well-nourished. Patient is nontoxic and well- hydrated and is in no acute distress. Patient is very tired. ENT: Neck is soft and supple. No significant lymphadenopathy is noted. Oropharynx is clear. Moist mucous membranes. Neck has full range of motion without eliciting any pain. EYES: The sclera were anicteric and conjunctiva were pink and moist. Extraocular movements were intact and pupils were equal round and reactive to light. Eyelids were unremarkable. PULMONARY: Unlabored respirations. Good breath sounds bilaterally. No audible rales rhonchi or wheezing was noted. CARDIOVASCULAR: There is a regular rate and rhythm without any murmurs gallops or rubs. ABDOMEN: Soft and nontender with normal bowel sounds. SKIN: Skin is clear with no lesions or rashes and otherwise unremarkable. NEUROLOGIC: Patient is alert and oriented x3. Cranial nerves II through XII are grossly intact. Motor and sensory are also intact. Normal speech, volume and content. Symmetrical smile. MUSCULOSKELETAL: Normal extremities with adequate strength and full range of motion. No lower extremity swelling or edema. No calf tenderness. LYMPHATICS: No significant lymphadenopathy is noted PSYCHIATRIC: Normal psychiatric evaluation. Limitations: no limitations Course Vital Signs 05/03/20 05/03/20 05/03/20 09:11 10:00 11:00 Temperature 97.7 F Pulse Rate 69 51 L 59 L Respiratory 16 16 13 Rate Blood Pressure 107/71 108/83 105/72 O2 Sat by Pulse 100 98 100 Oximetry Medical Decision Making - Medical Decision Making EKG shows a sinus bradycardia 59 bpm CO interval 218 QRS is 80 QT interval 444 QTC is 439. No ST segment elevation or depression. EPS evaluated the patient and determined she needed to be admitted. - Lab Data Result diagrams: 05/03/20 09:26 05/03/20 09:26 Lab Results 05/03/20 05/03/20 05/03/20 Range/Units 09:26 09:26 11:12 WBC 8.1 (3.8-10.6) k/uL RBC 4.44 (3.80-5.40) m/uL Hgb 12.9 (11.4-16.0) gm/dL Hct 40.1 (34.0-46.0) % MCV 90.3 (80.0-100.0) fL MCH 29.0 (25.0-35.0) pg MCHC 32.1 (31.0-37.0) g/dL RDW 14.3 (11.5-15.5) % Plt Count 253 (150-450) k/uL Neutrophils % 58 % Lymphocytes % 33 % Monocytes % 4 % Eosinophils % 2 % Basophils % 1 % Neutrophils # 4.7 (1.3-7.7) k/uL Lymphocytes # 2.7 (1.0-4.8) k/uL Monocytes # 0.4 (0-1.0) k/uL Eosinophils # 0.1 (0-0.7) k/uL Basophils # 0.1 (0-0.2) k/uL Sodium 139 (137-145) mmol/L Potassium 4.1 (3.5-5.1) mmol/L Chloride 108 H (98-107) mmol/L Carbon Dioxide 25 (22-30) mmol/L Anion Gap 6 mmol/L BUN 21 H (7-17) mg/dL Creatinine 0.50 L (0.52-1.04) mg/dL Est GFR (CKD-EPI)AfAm >90 (>60 ml/min/1.73 sqM) Est GFR (CKD-EPI)NonAf >90 (>60 ml/min/1.73 sqM) Glucose 123 H (74-99) mg/dL Calcium 9.3 (8.4-10.2) mg/dL Total Bilirubin 0.5 (0.2-1.3) mg/dL AST 22 (14-36) U/L ALT 16 (4-34) U/L Alkaline Phosphatase 60 (38-126) U/L Total Protein 6.8 (6.3-8.2) g/dL Albumin 4.3 (3.5-5.0) g/dL Urine HCG, Qual Not Detected (Not Detectd) Salicylates <1.0 mg/dL Urine Opiates Screen (NotDetected) Ur Oxycodone Screen (NotDetected) Urine Methadone Screen (NotDetected) Ur Propoxyphene Screen (NotDetected) Acetaminophen <10.0 ug/mL Ur Barbiturates Screen (NotDetected) U Tricyclic Antidepress (NotDetected) Ur Phencyclidine Scrn (NotDetected) Ur Amphetamines Screen (NotDetected) U Methamphetamines Scrn (NotDetected) U Benzodiazepines Scrn (NotDetected) Urine Cocaine Screen (NotDetected) U Marijuana (THC) Screen (NotDetected) Serum Alcohol <10 mg/dL 05/03/20 Range/Units 11:12 WBC (3.8-10.6) k/uL RBC (3.80-5.40) m/uL Hgb (11.4-16.0) gm/dL Hct (34.0-46.0) % MCV (80.0-100.0) fL MCH (25.0-35.0) pg MCHC (31.0-37.0) g/dL RDW (11.5-15.5) % Plt Count (150-450) k/uL Neutrophils % % Lymphocytes % % Monocytes % % Eosinophils % % Basophils % % Neutrophils # (1.3-7.7) k/uL Lymphocytes # (1.0-4.8) k/uL Monocytes # (0-1.0) k/uL Eosinophils # (0-0.7) k/uL Basophils # (0-0.2) k/uL Sodium (137-145) mmol/L Potassium (3.5-5.1) mmol/L Chloride (98-107) mmol/L Carbon Dioxide (22-30) mmol/L Anion Gap mmol/L BUN (7-17) mg/dL Creatinine (0.52-1.04) mg/dL Est GFR (CKD-EPI)AfAm (>60 ml/min/1.73 sqM) Est GFR (CKD-EPI)NonAf (>60 ml/min/1.73 sqM) Glucose (74-99) mg/dL Calcium (8.4-10.2) mg/dL Total Bilirubin (0.2-1.3) mg/dL AST (14-36) U/L ALT (4-34) U/L Alkaline Phosphatase (38-126) U/L Total Protein (6.3-8.2) g/dL Albumin (3.5-5.0) g/dL Urine HCG, Qual (Not Detectd) Salicylates mg/dL Urine Opiates Screen Not Detected (NotDetected) Ur Oxycodone Screen Not Detected (NotDetected) Urine Methadone Screen Not Detected (NotDetected) Ur Propoxyphene Screen Not Detected (NotDetected) Acetaminophen ug/mL Ur Barbiturates Screen Not Detected (NotDetected) U Tricyclic Antidepress Not Detected (NotDetected) Ur Phencyclidine Scrn Not Detected (NotDetected) Ur Amphetamines Screen Detected H (NotDetected) U Methamphetamines Scrn Detected H (NotDetected) U Benzodiazepines Scrn Not Detected (NotDetected) Urine Cocaine Screen Not Detected (NotDetected) U Marijuana (THC) Screen Detected H (NotDetected) Serum Alcohol mg/dL Disposition Clinical Impression: Methamphetamine abuse, Suicidal ideations Disposition: ADMITTED IP TO THIS HOSP Time of Disposition: 13:54
[2020-05-03 09:48] LABS: ALT 16 U/L (4-34); AST 22 U/L (14-36); Acetaminophen <10.0 ug/mL; African American GFR (CKD) >90 (>60 ml/min/1.73 sqM); Albumin 4.3 g/dL (3.5-5.0); Alcohol <10 mg/dL; Alkaline Phosphatase 60 U/L (38-126); Anion Gap 6 mmol/L; Blood Urea Nitrogen 21 mg/dL (7-17); Calcium 9.3 mg/dL (8.4-10.2); Carbon Dioxide 25 mmol/L (22-30); Chloride 108 mmol/L (98-107); Glucose 123 mg/dL (74-99); Non-African American GFR(CKD) >90 (>60 ml/min/1.73 sqM); Potassium 4.1 mmol/L (3.5-5.1); Salicylate <1.0 mg/dL; Sodium 139 mmol/L (137-145); Total Bilirubin 0.5 mg/dL (0.2-1.3); Total Protein 6.8 g/dL (6.3-8.2)
[2020-05-03 11:48] LABS: Urn Cannabinoid Scrn Detected (NotDetected)
[2020-05-03 11:49] LABS: Amphetamine Screen,Urine Detected (NotDetected); Barbiturate Screen,Urine Not Detected (NotDetected); Benzodiazepines Screen,Urine Not Detected (NotDetected); Cocaine Screen,Urine Not Detected (NotDetected); Methadone Screen, Urine Not Detected (NotDetected); Opiate Screen,Urine Not Detected (NotDetected); Oxycodone Screen, Urine Not Detected (NotDetected); Phencyclidine Screen,Urine Not Detected (NotDetected); Tricyclic Antidepressant,Urine Not Detected (NotDetected)
[2020-05-03] MEDS ORDERED: MAG HYDROX/AL HYDROX/SIMETH 30 ML CUP PO PRN (14:11)
[2020-05-03] MEDS ORDERED: ACETAMINOPHEN TAB 325 MG TAB PO PRN (14:11)
[2020-05-03] MEDS ORDERED: ZIPRASIDONE 20 MG VIAL IM PRN (14:11)
[2020-05-03] MEDS ORDERED: MAGNESIUM HYDROXIDE 2,400 MG/10 ML CUP PO PRN (14:11)
[2020-05-03] MEDS ORDERED: LORazepam 1 MG TAB PO PRN (14:11)
[2020-05-03] MEDS: NICOTINE 14MG/24HR PATCH TRANSDERM SCH (18:31)
--- NOTE | 2020-05-03 18:32 | P.HPMEDMHU ---
History of Present Illness H&P Date: 05/03/20 Chief Complaint: depression Patient is a 29-year-old female who presented to the emergency department after a suicide attempt. She has since been admitted to the mental health unit. Patient seen and examined at bedside. She reports she has had nausea and vomiting since receiving charcoal emergency department. She had been using meth on a regular basis by injection/ingestion but stopped approximately 2 days ago. She reports that today she bought which she thought was Klonopin off the street but the bottle said beeper Norethin. She also reports that she took half a Suboxone strip. She reports that she has had a dry nonproductive cough and a runny nose. She denies any fevers. She is not currently having any muscle aches. She is feeling cold and shivering. She reports that she wants to go to rehab and stop using methamphetamines. She states that she has tried to self detox and pelvis with alcohol but has been ineffective. She currently is smok ing 1 pack per day. She states that she has not ate about 5 days due to her drug use. She was afraid to be withdrawal periods people. She states that when she withdraws from meth she is very short fuse. She states she wants to finish her treatment in the mental health unit and then go to rehab. Review of Systems Pertinent positives and negatives as discussed in HPI, a complete review of systems was performed and all other systems are negative. Past Medical History Past Medical History: No Reported History History of Any Multi-Drug Resistant Organisms: None Reported Past Surgical History: Hernia Repair, Tonsillectomy Additional Past Surgical History / Comment(s): UMBILICAL HERNIA REPAIR, D&C Past Anesthesia/Blood Transfusion Reactions: No Reported Reaction Past Psychological History: No Psychological Hx Reported Smoking Status: Current every day smoker Past Alcohol Use History: None Reported Past Drug Use History: Marijuana, Methamphetamine - Past Family History Mother Family Medical History: No Reported History Medications and Allergies Home Medications Medication Instructions Recorded Confirmed Type No Known Home Medications 05/03/20 05/03/20 History Allergies Allergy/AdvReac Type Severity Reaction Status Date / Time No Known Allergies Allergy Verified 05/03/20 11:11 Physical Exam Osteopathic Statement: *. No significant issues noted on an osteopathic structural exam other than those noted in the History and Physical/Consult. Vitals: Vital Signs Temp Pulse Pulse Resp BP BP Pulse Ox 05/03/20 14:43 97.0 F L 102 H 18 123/90 99 05/03/20 11:00 59 L 13 105/72 100 05/03/20 10:00 51 L 16 108/83 98 05/03/20 09:11 97.7 F 69 16 107/71 100 Intake and Output 05/03/20 05/03/20 05/03/20 06:59 14:59 22:59 Other: Weight 55.9 kg General: non toxic, mild distress, appears at stated age, normal weight, disheveled Derm: Multiple areas of what appears to be tattoos that had bleeding versus bruises, some track gonzalez in her forearms, warm, dry Head: atraumatic, normocephalic, symmetric Eyes: EOMI, no lid lag, anicteric sclera, pupils equal round reactive to light ENT: Nose and ears atraumatic, no thrush, no pharyngeal erythema Neck: No thyromegaly, no cervical lymphadenopathy, trachea midline, supple Mouth: no lip lesion, mucus membranes moist Cardiovascular: S1S2 reg, no murmur, positive posterior tibial pulse bilateral, no edema, capillary refill less than 2 seconds Lungs: Decreased breath sounds bilateral, no rhonchi, no rales , no accessory muscle use Abdominal: soft, nontender to palpation, no guarding, no appreciable organomegaly, normal bowel sounds Ext: no gross muscle atrophy, muscle strength grossly intact, no contractures, Neuro: CN II-XI grossly intact, light touch intact all 4 extremities, shivering Psych: Alert, oriented, upset and crying Cranial Nerve Examination - Cranial Nerves Cranial Nerve II- Optic: Intact Cranial Nerve III- Oculomotor: Intact Cranial Nerve IV- Trochlear: Intact Cranial Nerve V- Trigeminal: Intact Cranial Nerve - Abducens: Intact Cranial Nerve VII- Facial: Intact Cranial Nerve VIII- Auditory: Intact Cranial Nerve IX- Glossopharyngeal: Intact Cranial Nerve X- Vagus: Intact Cranial Nerve XI- Accessory: Intact Cranial Nerve XII- Hypoglossal: Intact Results CBC & Chem 7: 05/03/20 09:26 05/03/20 09:26 Labs: Abnormal Lab Results - Last 24 Hours (Table) 05/03/20 05/03/20 Range/Units 09:26 11:12 Chloride 108 H (98-107) mmol/L BUN 21 H (7-17) mg/dL Creatinine 0.50 L (0.52-1.04) mg/dL Glucose 123 H (74-99) mg/dL Ur Amphetamines Screen Detected H (NotDetected) U Methamphetamines Scrn Detected H (NotDetected) U Marijuana (THC) Screen Detected H (NotDetected) Assessment and Plan Assessment: Dehydration -Nausea and vomiting control with Zofran -Encourage oral intake Drug overdose, unknown consumption, with suicide attempt -Status post activated charcoal -Monitor mentation Methamphetamine abuse -Cessation -Management of withdrawal symptoms Depression with suicidal ideation -Your psych management Thank you for allowing us to participate in the care of this pleasant patient. Do not hesitate to contact us with questions. Someone can be reached from the [facility] hospitalist group all hours of the day at [phone] or via perfect serve.
[2020-05-04] MEDS ORDERED: diphenhydrAMINE 50 MG CAP PO STA (05:46)
[2020-05-04] MEDS: NICOTINE 14MG/24HR PATCH TRANSDERM SCH ×2 (09:01→09:04)
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
[2020-05-04 14:15] LABS: Hemoglobin A1C 4.6 % (4.0-6.0)
[2020-05-04] MEDS: MIRTAZAPINE 15 MG TAB PO SCH (20:06)
[2020-05-04] MEDS: lamoTRIgine 25 MG TAB PO SCH (20:06)
[2020-05-04] MEDS: QUEtiapine 25 MG TAB PO PRN (20:07)
[2020-05-05] MEDS: lamoTRIgine 25 MG TAB PO SCH ×2 (08:47→21:00)
[2020-05-05] MEDS: NICOTINE 14MG/24HR PATCH TRANSDERM SCH (08:47)
--- NOTE | 2020-05-05 17:14 | P.PN ---
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 She was admitted on 05/04/2020 with complaints of depression, anxiety and suicidal ideation. These symptoms developed in the context of relapse to methamphetamine, cocaine, marijuana and Klonopin. She identified methamphetamine as her drug of choice. She relapsed 4 months ago and has been using on a near daily basis. She is insufflated, smoked and injected the methamphetamine. While she was using she described psychotics including paranoia, ideas reference, auditory hallucinations and visual misperceptions. Her current complaint is marked fatigue and tiredness. She denied having suicidal ideation and wishes. She denied experiencing auditory, visual or olfactory hallucinations, ideas reference, thought insertion, thought broadcasting or thought control. Medical consult appreciated. Mental status exam: She presented as a casually groomed 29-year-old female who was pleasant on approach. She made eye contact and attended the interview. She was oriented to place, month and year. She has psychomotor retardation but no abnormal movements. Speech was spontaneous with decreased rate, rhythm and volume. Affect was depressed. She denied suicidal ideation, wishes homicidal ideation. She denied feeling hopeless, helpless or worthless. She did not express ideas reference, paranoid ideation or delusions. Her thinking was concrete. Associations were logical and goal directed. She did not appear to be responding to internal stimuli. Assessment: She showed signs and symptoms of methamphetamine withdrawal Plan: Continue inpatient treatment. Continue safety precautions. Continue current psychotropic medications-Lamictal, Remeron and Seroquel. Encourage participation in therapeutic groups and activities. Evaluate clinical status response to treatment daily basis.
[2020-05-05] MEDS: MIRTAZAPINE 15 MG TAB PO SCH (20:59)
[2020-05-05] MEDS: QUEtiapine 25 MG TAB PO PRN (21:01)
[2020-05-06 06:55] VITALS: RESP 16
[2020-05-06] MEDS: lamoTRIgine 25 MG TAB PO SCH ×2 (08:49→22:22)
[2020-05-06] MEDS: NICOTINE 14MG/24HR PATCH TRANSDERM SCH (08:49)
--- NOTE | 2020-05-06 11:12 | P.PN ---
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 She denied complaints or concerns. She denied having suicidal ideation and wishes. She denied experiencing auditory, visual or olfactory hallucinations, ideas reference, thought insertion, thought broadcasting or thought control. Mental status exam: She presented as a casually groomed 29-year-old female who was pleasant on approach. She made eye contact and attended the interview. She was oriented to place, month and year. She has psychomotor retardation but no abnormal movements. Speech was spontaneous with decreased rate, rhythm and volume. Affect was depressed. She denied suicidal ideation, wishes homicidal ideation. She denied feeling hopeless, helpless or worthless. She did not express ideas reference, paranoid ideation or delusions. Her thinking was concrete. Associations were logical and goal directed. She did not appear to be responding to internal stimuli. Assessment: Mood symptoms are gradually resolving with abstinence from methamphetamine Plan: Continue inpatient treatment. Continue safety precautions. Continue current psychotropic medications-Lamictal, Remeron and Seroquel. Encourage participation in therapeutic groups and activities. Evaluate clinical status response to treatment daily basis.
[2020-05-06] MEDS: MIRTAZAPINE 15 MG TAB PO SCH (22:22)
[2020-05-06] MEDS: QUEtiapine 25 MG TAB PO PRN (22:23)
[2020-05-07 07:12] VITALS: BP 94/58; PULSE 67; TEMP 98.2
[2020-05-07] MEDS: NICOTINE 14MG/24HR PATCH TRANSDERM SCH (09:18)
[2020-05-07] MEDS: lamoTRIgine 25 MG TAB PO SCH (09:19)
[2020-05-07] MEDS ORDERED: QUEtiapine 25 MG TAB PO PRN (09:34)
[2020-05-07] MEDS ORDERED: lamoTRIgine 25 MG TAB PO ONE (09:36)
--- NOTE | 2020-05-07 09:47 | P.DS ---
Providers Date of admission: 05/03/20 13:41 Expected date of discharge: 05/07/20 Attending physician: Juan Oconnor MD Consults: 05/03/20 14:11 Consult Physician Routine Consulting Provider: Lissette Physician Consult Reason/Comments: H & P and medical care Do you want consulting provider notified?: Yes Primary care physician: Stated None - Discharge Diagnosis(es) (1) Mood disorder Current Visit: Yes Status: Acute Priority: High (2) Anxiety disorder Current Visit: Yes Status: Acute Priority: Medium (3) Methamphetamine abuse Current Visit: Yes Status: Acute Priority: Medium (4) Cocaine abuse Current Visit: Yes Status: Acute Priority: Medium (5) Cannabis abuse Current Visit: Yes Status: Acute Priority: Medium Hospital Course: Admission HPI: Admission note was completed by Dr. Trammell "This patient is a 29-year-old female who was admitted to the mental health unit through ER. The patient presents with reports of feeling increasingly depressed and anxious. The patient reports that she has been using increasing amounts of methamphetamines, and cocaine, marijuana, and Klonopin for last 3 months. The patient reports that she was having suicidal ideation with plans to overdose on the drugs area the patient reports multiple stressors and reports that she has n ot been able to see her children for last 4 months. The patient reports that her children were taken of age from the home because of her 's psychiatric illness. The patient also reports that she had attempted suicide by overdosing on Adderall. The patient reports that she was clean for about 3 months when she the labs 3 months ago and is started using the drugs again. The patient claims that she was feeling depressed because she was not able to see her children. The patient reports that she was using methamphetamines injections and would go several days without sleeping and eating. The patient also reports that she has lost about 40 pounds of weight in past one and half months. The patient also complained of frequent crying spells and panic attacks. The patient reports that she was not sleeping well and what finally crash and sleep. The patient reports that she was hallucinating and was seeing shadows at the corner of her eyes and wore a hearing voices but could not henna borate. The patient reports that she was hallucinating while she was on drugs. The patient reports history of impulsivity in the past. The patient reports that she was treated with Adderall in the past for one and half years until she overdosed on it 6 months ago when she was taken off affect." Hospital course: Upon admission to the unit patient was initially depressed and anxious and withdrawing from substances. Patient was however directable and agreeable to commence treatment. Patient got along well with other patients on the unit and followed unit protocol. Patient was compliant with the medications and denied any side effects throughout hospital course. Patient was started on Lamictal and titrated up to a dose of 50 mg twice a day for mood stabilization/depression, Seroquel 25 mg daily at bedtime when necessary for insomnia/anxiety, Remeron 15 mg daily at bedtime for appetite/mood and sleep. Patient spoke of her stressors and engaged in therapy both group and individual. Patient was also seen by medical team for history and physical exam. Throughout the course of the hospitalization patient gradually improved with regards to mood, anxiety, sleep and became future oriented with improved insight and judgment. On the day of discharge patient denied any suicidal or homicidal ideations intent or plan denied any auditory or visual hallucinations. Patient endorsed wanting to live for her health, sobriety and family. The patient denied any access to guns or weapons. Patient denied any paranoia and did not endorse any delusions. Patient does have a significant history of substance abuse and was counseled on abstaining from all substances including alcohol and marijuana. Patient was agreeable to go to [facility] for inpatient substance use treatment. Patient was also counseled on the medications and need for regular compliance and was encouraged to follow-up with their outpatient appointment for mental health and also for primary care. Prior to discharge a family meeting will be arranged by geriatric social worker to answer any questions and ensure safety upon discharge. Mental status exam: General Appearance: Patient appears to be thin, short in stature, stated age is alert, pleasant, and cooperative. Patient is in no acute distress and has fair hygiene and grooming Behavior: Patient is calmly seated without any agitated behavior. Cooperative. Speech: Patient's speech is fluent and nonpressured. Mood/Affect: Patient reports their mood is "much better", affect is congruent and euthymic. Suicidality/Homicidality: Patient denies having any suicidal or homicidal ideation intent or plan. Perceptions: Patient denies any auditory or visual hallucinations. Though content/process: There is no evidence of any delusional thought content and thought process is linear and goal-directed. more future oriented Memory and concentration: AOX3, grossly intact for the purposes of this session. Can spell "WORLD" backwards correctly. Judgment and insight: Improved with guarded prognosis Impression: Mood disorder unspecified, rule out secondary to polysubstance use Anxiety disorder unspecified Methamphetamine abuse Cocaine abuse Cannabis use disorder Plan: -Continue with discharge today as patient has improved and stabilized psychiatrically and is not currently an imminent threat to herself and/or others. -Continue medications: Seroquel 25 mg daily at bedtime when necessary for insomnia/anxiety, Lamictal 50 mg twice a day for mood stabilization/depression, Remeron 15 mg daily at bedtime for insomnia/appetite/mood. -Patient was counseled on the need for medication compliance and appropriate follow-up at mental health and also primary care for medical issues. Patient verbalized understanding and agreed. -Social work to arrange for and conduct family meeting to ensure safety upon discharge and answer any questions/concerns. Social work also to arrange for patients follow up appointments with [facility] for psychiatric care along with follow up with primary care provider. -Patient counseled on abstaining from recreational drugs and marijuana and alcohol. Was informed/educated on the adverse effects on their physical and mental health. Patient verbally agreed and understood. Patient will be going to [facility] for inpatient substance use treatment. -Patient was instructed to return to the hospital or seek immediate medical care if their psychiatric or medical symptoms do worsen or reoccur. Allergies Allergy/AdvReac Type Severity Reaction Status Date / Time No Known Allergies Allergy Verified 05/03/20 11:11 Laboratory Results WBC 8.1 k/uL (3.8-10.6) 05/03/20 09:26 RBC 4.44 m/uL (3.80-5.40) 05/03/20 09:26 Hgb 12.9 gm/dL (11.4-16.0) 05/03/20 09:26 Hct 40.1 % (34.0-46.0) 05/03/20 09:26 MCV 90.3 fL (80.0-100.0) 05/03/20 09:26 MCH 29.0 pg (25.0-35.0) 05/03/20 09:26 MCHC 32.1 g/dL (31.0-37.0) 05/03/20 09:26 RDW 14.3 % (11.5-15.5) 05/03/20 09:26 Plt Count 253 k/uL (150-450) 05/03/20 09:26 Neutrophils % 58 % 05/03/20 09:26 Lymphocytes % 33 % 05/03/20 09:26 Monocytes % 4 % 05/03/20 09: Eosinophils % 2 % 05/03/20 09: Basophils % 1 % 05/03/20 09:26 Neutrophils # 4.7 k/uL (1.3-7.7) 05/03/20 09:26 Lymphocytes # 2.7 k/uL (1.0-4.8) 05/03/20 09:26 Monocytes # 0.4 k/uL (0-1.0) 05/03/20 09:26 Eosinophils # 0.1 k/uL (0-0.7) 05/03/20 09:26 Basophils # 0.1 k/uL (0-0.2) 05/03/20 09:26 Sodium 139 mmol/L (137-145) 05/03/20 09:26 Potassium 4.1 mmol/L (3.5-5.1) 05/03/20 09:26 Chloride 108 mmol/L (98-107) H 05/03/20 09:26 Carbon Dioxide 25 mmol/L (22-30) 05/03/20 09:26 Anion Gap 6 mmol/L 05/03/20 09:26 BUN 21 mg/dL (7-17) H 05/03/20 09:26 Creatinine 0.50 mg/dL (0.52-1.04) L 05/03/20 09:26 Est GFR (CKD-EPI)AfAm >90 (>60 ml/min/1.73 sqM) 05/03/20 09:26 Est GFR (CKD-EPI)NonAf >90 (>60 ml/min/1.73 sqM) 05/03/20 09:26 Glucose 123 mg/dL (74-99) H 05/03/20 09:[address] Glu mg/dL 85 05/03/20 09:26 Hemoglobin A1c 4.6 % (4.0-6.0) 05/03/20 09:26 Calcium 9.3 mg/dL (8.4-10.2) 05/03/20 09:26 Total Bilirubin 0.5 mg/dL (0.2-1.3) 05/03/20 09:26 AST 22 U/L (14-36) 05/03/20 09:26 ALT 16 U/L (4-34) 05/03/20 09:26 Alkaline Phosphatase 60 U/L (38-126) 05/03/20 09:26 Total Protein 6.8 g/dL (6.3-8.2) 05/03/20 09:26 Albumin 4.3 g/dL (3.5-5.0) 05/03/20 09:26 Triglycerides 82 mg/dL (<150) 05/03/20 09: Cholesterol 156 mg/dL (<200) 05/03/20 09:26 LDL Cholesterol, Calc 89 mg/dL (0-99) 05/03/20 09:26 HDL Cholesterol 51 mg/dL (40-60) 05/03/20 09:26 TSH 0.326 mIU/L (0.465-4.680) L 05/03/20 09:26 Urine HCG, Qual Not Detected (Not Detectd) 05/03/20 11:12 Salicylates <1.0 mg/dL 05/03/20 09:26 Urine Opiates Screen Not Detected (NotDetected) 05/03/20 11:12 Ur Oxycodone Screen Not Detected (NotDetected) 05/03/20 11:12 Urine Methadone Screen Not Detected (NotDetected) 05/03/20 11:12 Ur Propoxyphene Screen Not Detected (NotDetected) 05/03/20 11:12 Acetaminophen <10.0 ug/mL 05/03/20 09:26 Ur Barbiturates Screen Not Detected (NotDetected) 05/03/20 11:12 U Tricyclic Antidepress Not Detected (NotDetected) 05/03/20 11:12 Ur Phencyclidine Scrn Not Detected (NotDetected) 05/03/20 11:12 Ur Amphetamines Screen Detected (NotDetected) H 05/03/20 11:12 U Methamphetamines Scrn Detected (NotDetected) H 05/03/20 11:12 U Benzodiazepines Scrn Not Detected (NotDetected) 05/03/20 11:12 Urine Cocaine Screen Not Detected (NotDetected) 05/03/20 11:12 U Marijuana (THC) Screen Detected (NotDetected) H 05/03/20 11:12 Serum Alcohol <10 mg/dL 05/03/20 09:26 Vital Signs Temp 98.2 F 05/07/20 07:12 Pulse 67 05/07/20 07:12 Resp 16 05/07/20 07:12 BP 94/58 05/07/20 07:12 Pulse Ox 98 05/04/20 19:43 Intake & Output 05/06/20 05/07/20 05/07/20 18:59 06:59 18:59 Weight 59.3 kg Patient Condition at Discharge: Stable Plan - Discharge Summary New Discharge Prescriptions: New Nicotine 14Mg/24Hr Patch [Habitrol] 1 patch TRANSDERM DAILY 14 Days patch lamoTRIgine [LaMICtal] 50 mg PO BID 30 Days tab Mirtazapine [Remeron] 15 mg PO HS 30 Days tab QUEtiapine [SEROquel] 25 mg PO HS PRN 30 Days tab PRN Reason: Insomnia Acetaminophen Tab [Tylenol] 650 mg PO Q4HR PRN tab PRN Reason: Pain/Discomfort Discharge Medication List Acetaminophen Tab [Tylenol] 650 mg PO Q4HR PRN tab 05/07/20 [Rx] Mirtazapine [Remeron] 15 mg PO HS 30 Days tab 05/07/20 [Rx] Nicotine 14Mg/24Hr Patch [Habitrol] 1 patch TRANSDERM DAILY 14 Days patch 05/07/20 [Rx] QUEtiapine [SEROquel] 25 mg PO HS PRN 30 Days tab 05/07/20 [Rx] lamoTRIgine [LaMICtal] 50 mg PO BID 30 Days tab 05/07/20 [Rx] Follow up Appointment(s)/Referral(s): intake,intake [Other] - 05/07/20 1:00 pm None,Stated [Primary Care Provider] - 1-2 days Patient Instructions/Handouts: Depression (DC), Suicide Prevention For Adolescents (DC) Activity/Diet/Wound Care/Special Instructions: Activity and diet as tolerated. Avoid the use of street drugs and alcohol. Take all medications as prescribed. When you are in need of refills on your medications please contact your medical provider and/or outpatient psychiatrist to have this done. Please go to scheduled outpatient appointment for aftercare treatment. If symptoms return or become worse, call the crisis line at and/or go to the nearest emergency room for evaluation. Discharge Disposition: HOME SELF-CARE
[2020-05-07] MEDS ORDERED: lamoTRIgine 25 MG TAB PO SCH (21:00)
[2020-05-07] MEDS ORDERED: MIRTAZAPINE 15 MG TAB PO SCH (21:00)
== END 2020-05-07 11:30 | disposition home or self-care (01) | DRG 885 ==
LOC: EC 09:05 → 3MHU 13:41
PROVIDERS: ADMIT Psychiatry & Neurology Psychiatry; ATTEND Psychiatry & Neurology Psychiatry
DX: F39 Unspecified mood [affective] disorder (principal); F15.20 Other stimulant dependence, uncomplicated; R45.851 Suicidal ideations; F14.10 Cocaine abuse, uncomplicated; F12.10 Cannabis abuse, uncomplicated; F17.200 Nicotine dependence, unspecified, uncomplicated; F41.0 Panic disorder [episodic paroxysmal anxiety]; Z56.0 Unemployment, unspecified; T42.4X2A Poisoning by benzodiazepines, intentional self-harm, initial encounter; Z91.5 Personal history of self-harm; Z81.8 Family history of other mental and behavioral disorders
CPT/HCPCS: 36415; 80053; 80061; 80306; 80320; 80329; 81025; 83036; 83520; 84443; 85025; 93005; 96360; 99285